=== PATIENT | female | born 1990 | race Hispanic/Latino ===

== ENCOUNTER 2018-12-29 09:49 | Inpatient (IN) | payer OTHER ==
[2018-12-29] MEDS ORDERED: Ondansetron PF 4 MG/2 ML Vial IVP PRN ×3 (10:28→14:44)
[2018-12-29] MEDS ORDERED: Promethazine HCl 25 MG/ML VIAL IM PRN ×3 (10:28→14:44)
[2018-12-29] MEDS: Lactated Ringer's 1,000 ML IV SCH (10:30)
[2018-12-29 10:44] LABS: Hemoglobin 11.3 g/dL (12.0-16.0); Mean Corpuscular HGB CONC 33.7 g/dL (32.0-36.0); Mean Corpuscular Hemoglobin 29.8 pg (27.0-31.0); Mean Corpuscular Volume 88.6 fL (78.0-98.0); Mean Platelet Volume 8.2 fL (7.4-10.4); Platelet Count 298 thou/uL (130-400); RBC Distribution Width 12.8 % (11.5-14.5); White Blood Cell (WBC) Count 9.6 thou/uL (4.8-10.8)
[2018-12-29 11:08] VITALS: BMI 25.9
[2018-12-29] MEDS ORDERED: CEFAZOLIN 2 GM in Premix Bag 1 BAG IVPB ONE (11:15)
[2018-12-29] MEDS ORDERED: Bicitra 30 ML UDCUP PO SCH (11:15)
[2018-12-29 11:40] LABS: HBSAg Index 0.25 S/CO (0-0.99); Hep B Surf Ag Non-Reactive S/CO (NonReactive)
[2018-12-29 11:41] LABS: Syphilis Antibody Nonreactive (Nonreactive); Syphilis Antibody Index 0.02 S/CO (<1.00 Non-Reactive)
[2018-12-29] MEDS ORDERED: MORPHINE 5 MG/10 ML PF VIAL ONE (12:00)
[2018-12-29] MEDS ORDERED: Oxytocin 10 UNITS/ML VIAL ONE (12:00)
[2018-12-29] MEDS ORDERED: Ondansetron PF 4 MG/2 ML Vial ONE (12:00)
[2018-12-29] MEDS ORDERED: Phenylephrine HCL 10 MG/ML VIAL ONE (12:00)
[2018-12-29] MEDS ORDERED: ePHEDrine/0.9% NaCl/PF SYRINGE 50 mg/10 ml ONE (12:00)
[2018-12-29] MEDS ORDERED: Meperidine HCl/PF 25 MG/ML VIAL SLOW IVP PRN (13:05)
[2018-12-29] MEDS ORDERED: Naloxone HCl 0.4 mg/ml Vial IV PRN (13:05)
[2018-12-29] MEDS ORDERED: Ondansetron HCl/PF 4 MG/2 ML Vial IVP PRN (13:05)
[2018-12-29] MEDS ORDERED: Naloxone HCl 0.4 mg/ml Vial IVP PRN ×2 (13:05)
[2018-12-29] MEDS ORDERED: diphenhydrAMINE 50 MG/ML VIAL IVP PRN (13:05)
[2018-12-29] MEDS ORDERED: L&D-Morphine 4 MG/ML VIAL SLOW IVP PRN (13:05)
[2018-12-29] MEDS ORDERED: HYDROmorphone 2 MG/ML VIAL SLOW IVP PRN (13:05)
[2018-12-29] MEDS ORDERED: Promethazine HCl 25 MG SUPP PR PRN (13:05)
[2018-12-29] MEDS ORDERED: Communication Order-Pharmacy FS SCH (13:15)
[2018-12-29] MEDS ORDERED: Ketorolac Tromethamine 30 MG/ML VIAL IVP SCH (13:15)
[2018-12-29] MEDS ORDERED: Ketorolac Tromethamine 30 MG/ML VIAL ONE (13:53)
[2018-12-29] MEDS: Ketorolac Tromethamine 30 MG/ML VIAL IVP PRN ×2 (13:55→20:31)
[2018-12-29] MEDS ORDERED: Lanolin Ointment 7 GM TUBE TOP PRN (14:44)
[2018-12-29] MEDS ORDERED: NS / Oxytocin 40 units/1000ml 1,000 ML IV SCH (14:44)
[2018-12-29] MEDS ORDERED: Bisacodyl 10 MG SUPP PR PRN (14:44)
[2018-12-29] MEDS ORDERED: diphenhydrAMINE 25 MG CAP PO PRN (14:44)
--- NOTE | 2018-12-29 17:04 | PDOC.OPDEL ---
OB Operative/Delivery Note Delivery Dr/Surgeon: Dr. Porras Assist: Dr. Bob Pre-Delivery Diagnosis: scheduled section Procedure/Post Delivery Dx: repeat low transverse CS Weeks gestation: 39 Anesthesia: spinal - Findings A Sex: male - Additional Findings/Plan Placenta delivered: manual removal findings: low transverse hysterotomy without extension Compilations/Other Findings: Preoperative Diagnosis: 1)Term intrauterine 2)Previous 3)Previous vertical skin incision Postoperative Diagnosis: 1)Term intrauterine , delivered 2)Previous 3)Previous vertical skin incision Anesthesia: spinal Indications: The patient is a 28 year old female at 39.0 weeks gestation who presents for a repeat scheduled . Procedure in Detail: After risks, benefits, and alternatives were explained to the patient, she gave informed consent. Pre-operative antibiotics included Cefazolin 2 gram IV. The patient was taken to the operating room and spinal anesthesia was initiated. She was placed in the supine position with a left tilt and prepped and draped in usual sterile fashion. A vertical incision incision was made with a scalpel and carried down to the level of the fascia which was sharply nicked. The fascial cut was extended bilaterally with Gonzalez scissors. The inferior and superior edges of the cut fascial edges were elevated with Wanda clamps and the underlying rectus muscles were sharply and bluntly dissected free. The recti were divided digitally and retracted manually. The peritoneum was entered bluntly and retracted manually. Bladder blade was placed. Bladder flap was created with Metzenbaum scissors. A low transverse score was made with the scalpel and the uterus was entered in the midline bluntly. Clear fluid was seen. The hysterotomy was extended manually in a cephalocaudal fashion. The was noted to be vertex and was easily delivered by fundal pressure. Mouth and nares were bulb suctioned. Cord clamped and cut after one minute delayed cord clamping and grossly normal male infant was handed to waiting nurse. Cord blood was obtained. Placenta was manually extracted, found to be intact with 3 vessel cord and discarded. The uterus was externalized and the endometrium was curetted with a dry lap. The bladder blade was replaced and the uterus was closed with a running locking 0- Vicryl followed by a few figure of eight sutures with 0-Vicryl. Following this hemostasis was noted. Seprafilm was placed on the uterus. The abdomen was irrigated with saline and suctioned free of clots. The uterus was internalized and the hysterotomy was again noted to be hemostatic. The fascia was closed with a running non-locking 0-PDS suture. The subcutaneous tissue was examined and there were no bleeders. The skin was approximated with toyin and a pressure dressing was placed. All counts were correct. The patient tolerated the procedure well and was taken to the recovery room in stable condition. Time of delivery: 1226 on 12/29/18 Quantitative blood loss: pending, see nurses notes Complications: None Specimens: Cord blood sent to lab for blood type Findings: Grossly normal male infant went to nursery for routine care. Grossly normal placenta with 3 vessel cord discarded. Drains: Castaneda to gravity draining clear urine Post delivery plan: routine recovery
[2018-12-30] MEDS: Lactated Ringer's 1,000 ML IV SCH (00:54)
[2018-12-30] MEDS ORDERED: Meperidine HCl/PF 25 MG/ML VIAL IM PRN (01:15)
[2018-12-30] MEDS ORDERED: HYDROcodone/Acetaminophen 5/325 mg Tablet PO PRN (01:15)
[2018-12-30] MEDS: Ketorolac Tromethamine 30 MG/ML VIAL IVP PRN ×2 (03:49→09:24)
[2018-12-30] MEDS: Simethicone Chewable 80 MG TAB PO PRN ×4 (03:53→21:39)
[2018-12-30] MEDS: Ferrous Sulfate 325 MG TAB PO SCH ×3 (05:26→21:24)
[2018-12-30] MEDS: Docusate Calcium (SURFAK) 240 MG CAP PO SCH ×3 (05:26→21:24)
[2018-12-30 07:39] LABS: Hemoglobin 8.4 g/dL (12.0-16.0); Mean Corpuscular HGB CONC 34.5 g/dL (32.0-36.0); Mean Corpuscular Hemoglobin 30.6 pg (27.0-31.0); Mean Corpuscular Volume 88.7 fL (78.0-98.0); Mean Platelet Volume 8.1 fL (7.4-10.4); Platelet Count 233 thou/uL (130-400); RBC Distribution Width 12.8 % (11.5-14.5); Red Blood Cell (RBC) Count 2.74 mill/uL (4.20-5.40)
[2018-12-30] MEDS: Prenatal Vitamin 1 TAB PO SCH (08:40)
[2018-12-30] MEDS: HYDROcodone/Acetaminophen 5/325 mg Tablet PO PRN ×3 (08:41→21:38)
[2018-12-30] MEDS: Ibuprofen 800 MG TAB PO SCH ×2 (15:08→21:24)
[2018-12-31] MEDS: Ibuprofen 800 MG TAB PO SCH ×3 (05:40→21:34)
[2018-12-31] MEDS: HYDROcodone/Acetaminophen 5/325 mg Tablet PO PRN ×2 (07:57→20:47)
[2018-12-31] MEDS: Prenatal Vitamin 1 TAB PO SCH (07:58)
[2018-12-31] MEDS: Ferrous Sulfate 325 MG TAB PO SCH ×2 (07:58→20:46)
[2018-12-31] MEDS: Docusate Calcium (SURFAK) 240 MG CAP PO SCH ×2 (07:58→20:46)
[2019-01-01] MEDS: HYDROcodone/Acetaminophen 5/325 mg Tablet PO PRN ×2 (05:18→09:34)
[2019-01-01] MEDS: Ibuprofen 800 MG TAB PO SCH ×2 (05:18→13:44)
[2019-01-01 09:03] VITALS: BP 96/53; TEMP 98.5
[2019-01-01] MEDS: Ferrous Sulfate 325 MG TAB PO SCH (09:34)
[2019-01-01] MEDS: Prenatal Vitamin 1 TAB PO SCH (09:34)
[2019-01-01] MEDS: Docusate Calcium (SURFAK) 240 MG CAP PO SCH (09:34)
== END 2019-01-01 15:05 | disposition home or self-care (01) | DRG 788 ==
LOC: L&D 09:49 → 3SW 15:00
PROVIDERS: ADMIT Family Medicine; ATTEND Family Medicine
PROC: 10D00Z1 Extraction of Products of Conception, Low, Open Approach (ICD-10-PCS; principal; 2018-12-29)
DX: O34.211 Maternal care for low transverse scar from previous cesarean delivery (principal); Z3A.39 39 weeks gestation of pregnancy; Z37.0 Single live birth
CPT/HCPCS: 36415; 51702; 85027; 85461; 86780; 86850; 86870; 86900; 86901; 87340; 90384; 96372; J0690; J1885; J2270; J2370; J2405; J2590